=== PATIENT | female | born 1985 | race Caucasian/White ===

== ENCOUNTER 2016-10-28 10:30 | Inpatient (IN) | payer OTHER ==
[~2016-10-28] VITALS: Ht 167.6 cm; Wt 113.4 kg
[2016-10-28] MEDS ORDERED: Hemorrhage Kit, Post Partum XX ONE ×2 (10:35→22:05)
[2016-10-28] MEDS ORDERED: Sodium Chloride LOK Flush 10 mL Syringe IVFLUSH PRN (10:35)
[2016-10-28] MEDS ORDERED: Oxytocin 30 Units/500 mL LR 30 UNITS in IV Premix 1 EACH IV PRN ×3 (10:35→22:05)
[2016-10-28] MEDS ORDERED: Methylergonovine 0.2 mg/mL Inj IM PRN ×2 (10:35→22:05)
[2016-10-28] MEDS ORDERED: fentaNYL-PF 50 mCg/mL 2 mL Inj IVPUSH PRN (10:35)
[2016-10-28] MEDS ORDERED: Carboprost 250 mCg/mL Inj IM PRN ×2 (10:35→22:05)
[2016-10-28] MEDS ORDERED: Penicillin G K Inj 5,000,000 UNITS in Dextrose 5% Minibag Plus 100 ML IV ONE (10:35)
[2016-10-28] MEDS ORDERED: Oxytocin 10 Unit/mL Inj IM PRN ×2 (10:35→22:05)
[2016-10-28] MEDS: Lactated Ringer's 1,000 ML IV PRN ×2 (11:12→15:19)
[2016-10-28 11:15] LABS: Mean Corpuscular Volume 83.8 fL (81-100)
[2016-10-28] MEDS: Penicillin G K Inj 3,000,000 UNITS in IV Premix 1 EACH IV SCH (15:19)
[2016-10-28] MEDS ORDERED: fentaNYL 2 mCg/mL-Bupivicaine 0.125% 100 mL Premix EPIDURAL ONE (18:05)
[2016-10-28] MEDS ORDERED: Lactated Ringer's 500 ML IV ONE (18:08)
[2016-10-28] MEDS ORDERED: Lactated Ringer's 1,000 ML IV SCH ×2 (18:08→22:05)
[2016-10-28] MEDS ORDERED: fentaNYL 2 mCg/mL-Bupiv 0.125% 100 ML EPIDURAL SCH (18:10)
[2016-10-28] MEDS ORDERED: Atropine 1 mg/10 mL (Code) Syringe IVPUSH PRN (18:10)
[2016-10-28] MEDS ORDERED: EPHEDrine Sulfate 50 mg/mL Inj IVPUSH PRN (18:10)
[2016-10-28] MEDS ORDERED: Ondansetron 2 mg/mL 2 mL Inj IVPUSH PRN (18:10)
[2016-10-28] MEDS ORDERED: Phenylephrine/NS-PF 100 mCg/mL 5 mL Syringe IVPUSH PRN (18:10)
--- NOTE | 2016-10-28 18:11 | PCM.HPANE ---
Patient Data Surgeon Admitting Provider:Lázaro Ruano MD Attending Provider:Lázaro Ruano MD Primary Care Physician:Lázaro Ruano MD Other Provider:Tyshawn Maldonado Anesthesia Reason for Visit LABOR LABOR Ht/WT & BMI Body Mass Index Allergies Coded Allergies: Bacitracin Zinc (Verified Allergy, Severe, ANAPHYLAXIS, 07/07/12) Polymyxin B (Verified Allergy, Severe, ANAPHYLAXIS, 07/07/12) bacitracin (Verified Allergy, Severe, ANAPHYLAXIS, 07/07/12) neomycin sulfate (Verified Allergy, Severe, ANAPHYLAXIS, 07/07/12) Codeine (Verified Allergy, Mild, N/V ACCORDING TO RN, 07/07/12) Sulfa(Sulfonamide Antibiotics) (Verified Allergy, 07/07/12) Medications Hypertension Medication: No Home Meds Incl Beta Krista: No History Hx of Heart Problems?: No Hx of Respiratory Problem?: No Hx Neurologic Problems?: No Hx of GI Problems?: Yes Gastrointestinal History: Positive for:: Heartburn Female Hx: Positive for:: Currently Smoking Status: Never Smoker Stop/Bang Treated for Sleep Apnea?: No Do You Have a CPAP Machine?: No Risk Assessment Category Category 1A: Patient has history of documented sleep apnea, and HAS NOT received any narcotic, sedative or anesthesia administration during this stay. Category 1B: Patient has history of documented sleep apnea, and HAS received any narcotic , sedative or anesthesia administration during this stay Category 2: Patient has SUSPECTED Obstructive Sleep Apnea, and HAS received any narcotic , sedative or anesthesia administration during this stay. Category 3: Patient has SUSPECTED Obstructive Sleep Apnea and HAS NOT received narcotic, sedative or anesthesia administration during this stay. Category 4: Outpatient in Procedural Areas with known sleep apnea or who screen positive for High Risk via the STOP/BANG questionnaire. Exam Exam General Appearance: Oriented X3 HEENT/AIRWAY: MP 3 Lungs: Normal Air Movement Heart: Regular Rate/Rhythm Meds/Labs/Diagnostics Admission Meds Current Medications Penicillin G Potassium [id number] units/Dextrose/ Water 100 ml @ 240 mls/hr ONCE ONCE IV Last administered on 10/28/16t 11:13; Start 10/28/16 at 10:35; Stop 10/02 at 12:32; Status DC Penicillin G Potassium/ Dextrose/Premix (Pfizerpen Inj/ IV Premix) 50 ml @ 100 mls/hr Q4 IV Last administered on 10/28/16t 15:19; Start 10/28/16 at 16:30 Labs Test 10/28/16 11:05 White Blood Count 9.7th/mm3 (3.8-10.1) Red Blood Count 4.57mil/mm3 (3.90-5.20) Hemoglobin 12.8g/dL (12.0-15.6) Hematocrit 38.3% (35.0-46.0) Mean Corpuscular Volume 83.8fL (81-100) Mean Corpuscular Hemoglobin 28.0pg (27.0-35.0) Mean Corpuscular Hemoglobin Concent 33.4% (32.0-37.0) Red Cell Distribution Width 14.3% (12.3-15.4) Platelet Count 264bil/L (150-400) Plan Impression Patient chart reviewed, patient interviewed and anesthestic plan with risks, benefits, and alternatives discussed, and informed consent obtained. ASA Physical Status: ASA3 Severe Disease Anesthetic Plan: Epidural Bene/Risks/Altern/Consents: Yes HP Complete Prior to Induction: Yes Solitario Valdivia MD Oct 28, 2016 18:11
[2016-10-28] MEDS ORDERED: LANOlin HPA 7 Gm Ointment TOPICAL PRN (22:05)
[2016-10-28] MEDS ORDERED: Witch Hazel-Glycerin Pads TOPICAL PRN (22:05)
[2016-10-28] MEDS ORDERED: Benzocaine (Dermoplast) 20% 60 Gm Spray TOPICAL PRN (22:05)
[2016-10-28] MEDS ORDERED: TdaP Vaccine 0.5 mL Inj IM ONE (22:05)
[2016-10-28] MEDS ORDERED: Measles-Mumps-Rubella Vaccine 0.5 mL Inj SUBQ ONE (22:05)
[2016-10-28] MEDS ORDERED: Influenza (Adult) Vaccine 0.5 mL Syringe IM ONE (22:05)
[2016-10-29] MEDS ORDERED: Sodium Chloride LOK Flush 10 mL Syringe IVFLUSH SCH (00:30)
[2016-10-29] MEDS: HYDROcodone-APAP 5-325 mg Tablet PO PRN ×4 (00:44→15:54)
[2016-10-29 06:42] LABS: Mean Corpuscular Hemoglobin 28.1 pg (27.0-35.0); Mean Corpuscular Volume 84.4 fL (81-100)
--- NOTE | 2016-10-29 08:50 | OP ---
[address] [address] OPERATIVE REPORT PATIENT: MAUREEN BATISTA : 1985 MR#: [id number] ADMIT: 10/28/2016 JOB ID: [id number] [facility] NOTE: DATE OF SURGERY: 10/28/2016 SURGEON: Lázaro Ruano MD. DELIVERY SUMMARY: The patient was admitted to [facility] this morning at 40+ weeks of gestation, spontaneous rupture of membranes and early labor. The cervix was dilated at 4 cm. Pitocin augmentation was provided and contractions became progressively more intense and ultimately, epidural was provided at the patient's request for pain management. Clear fluid continued to pass vaginally. Penicillin G prophylaxis was provided in light of group B strep test positivity. heart tracing demonstrated good variability throughout. Once completely dilated, the patient learned to push well. Head steadily descended in relatively brief second stage of labor. There were some heart rate drops consistent with umbilical cord stretch/compression yet intermixed with good heart rate variability and appropriate heart rate response to scalp stimulation. Ultimately, occurred and head then delivered, followed by the shoulders, body and extremities. There was no shoulder dystocia, although it was a tight fit for the body which took additional pushing effort beyond typical, although still brief. The baby was active and crying and vigorous upon delivery and handed to mother for bonding and further nurse management. After 1 plus minute delay, umbilical cord was clamped and cut, and cord blood was obtained for routine studies. Placenta with membranes then spontaneously were expelled, intact. Uterus contracted well with massage plus intravenous Pitocin infusion. Blood loss was in the 200 cc range. Betadine solution was used to cleanse the vulvovaginal region, and there was noted only one laceration, i.e. small midline second-degree perineal laceration. Lidocaine solution was injected to affect improved anesthesia beyond epidural for perineal repair. A 3-0 chromic suture was then utilized with deep and then more superficial running stitches. There was no hematoma formation, and skin edges were well approximated and no further bleeding. Instrument, needle and sponge counts were all found to be correct. Mother and baby were doing well. Maternal bleeding was minimal. Procedures were thus complete. It certainly is anticipated that mother and baby will do very well during the timeframe. MTDD
--- NOTE | 2016-10-29 09:16 | PCM.ANEP1 ---
Post Anesthesia Phase 1 PACU Phase 1 Assessment Date of Service: Oct 29, 2016 Anesthetic Administered: Epidural Level of Alertness: Awake, talking MORLAES's with Equal Strength: Yes Pain: No Nausea or Vomiting: No Oxygen Delivery: Room Air Lungs: Normal Air Movement Dermatome Level: Full Sensation Adam Huston MD Oct 29, 2016 09:16
--- NOTE | 2016-10-29 09:17 | PCM.ANEP2 ---
Post Anesthesia Evaluation ASA/CMS Post Anesthesia Date of Service: Oct 29, 2016 VS in Patient's Normal Range?: Yes Resp Stable; Airway Patent?: Yes CV Function & Hydration Stable: Yes Mental Status Recovered?: Yes Pain control Satisfactory?: Yes N/V Control Satisfactory?: Yes Adam Huston MD Oct 29, 2016 09:17
--- NOTE | 2016-10-29 16:01 | PCM.DIOB ---
Obstetrical Disch Instruction Dates of Hospitalization Date of Hospital Admission Oct 28, 2016 at 10:30 Providers Admitting Physician: Lázaro Ruano MD Primary Care Physician: Lázaro Ruano MD Attending Physician: Lázaro Ruano MD Discharge Diagnosis Problems: (1) Status: Acute ICD Code: Z33.1 Diet Discharge Diet: No restrictions Activity Discharge Activity-General: Pelvic Rest for 6 weeks Dressing and Incisional Care Hygiene: May shower, Perineal care, Sitz bath, Dermoplast spray, Witch Rosibel pads, Ice Follow Up Plan Follow-up appointment: Weeks (Follow up in 6 weeks for check-up with Dr. Ruano.) Call your provider for: Fever or Chills, Shortness of breath, Heavy vaginal bleeding, Red painful breasts Lázaro Ruano MD Oct 29, 2016 16:01
[2016-10-29] MEDS ORDERED: IBUP-1827 PO (16:04)
[2016-10-29] MEDS ORDERED: DOCU-41 PO (16:04)
[2016-10-29] MEDS ORDERED: HYDR-4003 PO (16:04)
[2016-10-29] MEDS: Penicillin G K Inj 3,000,000 UNITS in IV Premix 1 EACH IV SCH (17:28)
[2016-10-29 20:17] VITALS: BP 108/74; PULSE 79; RESP 16
--- NOTE | 2016-10-29 20:21 | DIS ---
[address] [address] DISCHARGE SUMMARY PATIENT: MAUREEN BATISTA : 1985 MR#: [id number] ADMIT: 10/28/2016 JOB ID: [id number] DIS: DISCHARGE DIAGNOSIS: Term , delivered. PROCEDURES PERFORMED DURING HOSPITALIZATION: 1. Labor augmentation with Pitocin. 2. Intravenous antibiotic prophylaxis with penicillin in light of group B Streptococcus test positivity. 3. Epidural anesthesia for labor pain. 4. Vaginal delivery. 5. Repair of second-degree midline perineal laceration. HOSPITAL COURSE: The patient was admitted to [facility] on October 28, 2016, on which day she underwent procedures as described. During the timeframe the patient did well, with stable vitals, afebrile, with reasonable bleeding and good pain management, voiding and ambulating, and handling baby well. She had no leg pain or shortness of breath, nor did she have any worrisome stitch area pain. hemoglobin was okay. Note that the patient was interested in going home on the first day, i.e., on October 29, 2016, and her request was granted. DISCHARGE PROGRAM: The patient is to call p.r.n., get her first follow up at six weeks for a checkup at [facility] with Dr. Ruano. She will observe pelvic rest. Discharge medications include Jelm 5/325, ibuprofen 600, and Colace. Prescriptions written. The patient will also use a vitamin daily, having a supply at home. YANELY
--- NOTE | 2017-01-17 09:32 | HP ---
[address] [address] HISTORY AND PHYSICAL PATIENT: MAUREEN BATISTA : 1985 MR#: [id number] ADMIT: 10/28/2016 JOB ID: [id number] [facility] NOTE DATE: 10/28/2016 The patient is a 31-year-old, G2, P1, AB0, woman, followed prenatally at [facility], see record for details. Due date October 26, 2016, placing the patient on date at admission at 40 and 2/7 weeks gestation. She spontaneously ruptured membranes and developed early labor and presented to the [facility] and was admitted. Note that patient has positive group B strep test in late and penicillin has been planned for prophylaxis thus. Patient declined quad screen in , although level 2 sonogram was negative. She is rubella immune and Rh positive. In summary, then, the patient was admitted to [facility] on October 28, 2016 in early labor with spontaneous rupture of membranes at term. PHYSICAL EXAMINATION: On admission, last height, weight, and blood pressure in the office were 65 inches, 246 pounds, and 126/80. Neck no thyromegaly. Lungs are clear to auscultation and percussion. Heart regular in rate and rhythm. Abdomen: Last fundal height check 41 cm consistent with full term. Positive heartbeat. Vertex presentation. Pelvic examination: Cervix on admission was 4 cm dilated, ruptured membranes, bag of water intact. DIAGNOSTIC DATA: Admission hemoglobin greater than 12. IMPRESSION: 1. A 40 and 2/7 weeks . 2. Spontaneous rupture of membranes plus early labor. 3. Positive group B strep test, for antibiotic prophylaxis in labor. 4. Rubella immune status. 5. Rh positive status. 6. Declined a quad screen during , note level 2 sonogram negative. 7. Reproductive history: a. 1st -39 week vaginal delivery, 7 pounds 4 ounce baby, epidural, 5 hour labor. b. Second --current. 8. Surgical history: a. Reproductive history--see prior number. b. Right knee surgery (1998). 9. Exercise-induced asthma, uses albuterol inhaler p.r.n. 10. Increased weight, and note almost 50 pounds weight gain in . 11. Eczema. 12. Medication intolerance and allergies: a. Codeine--nausea and vomiting (note that Vicodin and Dilaudid are tolerated). b. Neosporin allergy--anaphylaxis (some Neosporin likely ingested from lip, anaphylactic reaction). c. Sulfa--nausea and vomiting and hives. 13. Family history of diabetes (parents), thyroid disease, ovarian cancer, and twins (mother, the patient is an identical twin). 14. Tdap received in , flu vaccination declined. PLAN: This patient was admitted to [facility] on October 28, 2016 with ruptured membranes and early labor at term, anticipating vaginal .
== END 2016-10-29 20:50 | disposition home or self-care (01) | DRG 775 ==
LOC: FBC 10:30
PROVIDERS: ADMIT Obstetrics & Gynecology; ATTEND Obstetrics & Gynecology
PROC: 10E0XZZ Delivery of Products of Conception, External Approach (ICD-10-PCS; principal; 2016-10-28)
PROC: 0KQM0ZZ Repair Perineum Muscle, Open Approach (ICD-10-PCS; 2016-10-28)
DX: O70.1 Second degree perineal laceration during delivery (principal); O99.824 Streptococcus B carrier state complicating childbirth; Z37.0 Single live birth; Z3A.40 40 weeks gestation of pregnancy